=== PATIENT | female | born 1965 | race Hispanic/Latino ===

== ENCOUNTER → 2024-09-23 | Outpatient (CLI) | payer OTHER, MEDICARE ==
--- NOTE | 2024-09-23 13:05 | HMCIMG ---
NUCLEAR MEDICINE GASTRIC EMPTYING STUDY INDICATION: Nausea vomiting, acid reflux, abdominal pain, bloating, diarrhea/constipation since 2008. RADIOPHARMACEUTICAL: Examination was performed with hard boiled egg, with 1.5 mCi 99 M technetium labeled sulfur colloid within. FINDINGS: Region of interest curves were drawn, and qualitatively, good gastric emptying noted with most of the radiotracer out of the stomach by the 90 minute sue. 50% emptying occurred at 75 minutes. IMPRESSION: Normal gastric emptying scan.
== END | disposition home or self-care (01) ==
LOC: RAH 09:49
PROVIDERS: ATTEND Internal Medicine Gastroenterology
DX: K21.9 Gastro-esophageal reflux disease without esophagitis (principal); R10.9 Unspecified abdominal pain; R11.2 Nausea with vomiting, unspecified; K59.00 Constipation, unspecified
CPT/HCPCS: 78264; A9541

== ENCOUNTER → 2024-11-14 | Outpatient (CLI) | payer OTHER, MEDICARE ==
[~2024-11-14] MED LIST: IOHEXOL-350 75 ML VIAL IV ONE
--- NOTE | 2024-11-14 11:24 | HMCIMG ---
CT ABDOMEN WITH CONTRAST Clinical Information: NAUSEA WITH VOMITING Comparison: CT Dose Index (CTDI): mGy Dose Length Product (DLP): total mGy-cm Contrast: 100 cc's Isovue 370 IV, no complications or adverse reactions Technique: Routine helical scanning at 5mm collimation through the abdomen was performed after oral contrast administration. The examination was done before and after IV contrast administration as well. Intermediate and 7 minute delayed post IV contrast administration images were performed, for adequate contrast distention of the urinary collecting systems, ureters and the urinary bladder. Please note a retroperitoneal phlebolith on the left side at mid ureter level adjacent to the left ureter but not inside the lumen. This does not represent a calculus. Findings: No evidence of nephro or ureterolithiasis is found. No hydronephrosis or ureteral dilatation is seen. The lung bases are clear. The stomach is unremarkable. There is no evidence of gastric dilatation. No blastic thickening is noted to suggest inflammation or tumor. There is no perforation. There is no gastric outlet obstruction. There is no ulceration. The spleen is unremarkable. It is not enlarged. The pancreas shows normal anatomy. It is not fatty replaced. It shows no lesions. The pancreatic duct is not dilated. The gallbladder is unremarkable. It shows no cholelithiasis. The gallbladder wall is normal in thickness. There is no pericholecystic fluid. The is no acute or chronic inflammation noted. The adrenal glands are unremarkable. There is no enlargement. No lesions are noted. The liver is unremarkable. It shows no focal masses. The visualized segments of large and small bowel appear unremarkable. The bony and vascular structures are unremarkable for the patient's age. IMPRESSION: NEGATIVE CT SCAN OF THE ABDOMEN. NO RENAL STONES. NO ACUTE PATHOLOGY OR INFLAMMATION SEEN. This study was performed using dose reduction techniques to include automated exposure control and/or adjustment of the mA and/or kV according to patient size.
== END | disposition home or self-care (01) ==
LOC: RAH 09:10
PROVIDERS: ATTEND Internal Medicine Gastroenterology
DX: R10.9 Unspecified abdominal pain (principal); R11.2 Nausea with vomiting, unspecified
CPT/HCPCS: 74170; Q9967